=== PATIENT | male | born 1990 | race Asian ===

== ENCOUNTER → 2017-12-17 | Outpatient (CLI) | payer OTHER ==
[2017-12-17 15:36] LABS: ALBUMIN 4.1 g/dL (3.4-5.0); CALCIUM 8.7 mg/dL (8.5-10.1); CREATININE 1.1 mg/dL (0.6-1.3); POTASSIUM 4.3 mmol/L (3.5-5.1); TOTAL BILIRUBIN 0.6 mg/dL (<0.1-1.0); TOTAL PROTEIN 7.5 g/dL (6.4-8.2)
== END ==
LOC: M.LAB 15:06
PROVIDERS: Psychiatry & Neurology Neuromuscular Medicine
DX: E55.9 Vitamin D deficiency, unspecified (principal); R11.0 Nausea

== ENCOUNTER → 2018-05-18 | Outpatient (CLI) | payer OTHER ==
[2018-05-18 11:02] LABS: HEMATOCRIT 43.6 % (42.0-52.0); MCH 30.2 pg (26.0-34.0); MCHC 34.3 g/dL (28.0-37.0); MCV 88.2 fL (80.0-100.0); MPV 8.7 fl. (7.2-11.1); RBC 4.95 mil/uL (4.50-6.00); RDW-CV 12.6 % (10.5-14.5); WBC 5.5 thou/uL (4.0-11.0)
[2018-05-18 11:15] LABS: ALBUMIN 3.9 g/dL (3.4-5.0); CALCIUM 8.8 mg/dL (8.5-10.1); POTASSIUM 4.1 mmol/L (3.5-5.1); TOTAL BILIRUBIN 0.6 mg/dL (<0.1-1.0); TOTAL PROTEIN 7.1 g/dL (6.4-8.2)
== END ==
LOC: M.LAB 10:45
PROVIDERS: Psychiatry & Neurology Neuromuscular Medicine
DX: E55.9 Vitamin D deficiency, unspecified (principal)